=== PATIENT | female | born 2000 | race Hispanic/Latino ===

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

== ENCOUNTER 2021-10-11 13:49 | Emergency (ER) | payer BC ==
[~2021-10-11] VITALS: Ht 154.9 cm; Wt 49.4 kg
[2021-10-11 14:18] LABS: APPEARANCE,URINE Clear (CLEAR); BILIRUBIN,URINE Negative (NEGATIVE); COLOR,URINE Yellow (YELLOW); GLUCOSE, URINE (UA) Negative (NEGATIVE); KETONES,URINE Negative (NEGATIVE); LEUKOCYTE ESTERASE ,URINE Negative (NEGATIVE); NITRATE,URINE Negative (NEGATIVE); OCCULT BLOOD,URINE Trace (NEGATIVE); PH,URINE 6.5 (5.0-8.0); PROTEIN,URINE Negative (NEGATIVE); UROBILINOGEN,URINE 0.2 mg/dL (0.2-1.0)
[2021-10-11 14:24] LABS: HCG,QUAL RESULT NEGATIVE (NEGATIVE)
[2021-10-11] MEDS ORDERED: ONDANSETRON 4MG INJ IVP ONE (14:30)
[2021-10-11 14:34] LABS: BACTERIA,URINE Rare /HPF (None Seen); RBC,URINE 0-1 /HPF (0-1); SQUAMOUS EPITHELIAL CELL,UR Rare /HPF (0-2); WBC,URINE 0-1 /HPF (0-1)
[2021-10-11 14:41] LABS: BASOPHILS % (AUTO) 0.4 % (0.0-5.0); HEMATOCRIT 41.3 % (36-48); LYMPHOCYTES % (AUTO) 21.8 % (21.0-51.0); MEAN CORPUSCULAR HEMOGLOBIN 30.7 pg (27.0-33.0); MEAN CORPUSCULAR HGB CONC 33.9 g/dL (32.0-36.0); MEAN CORPUSCULAR VOLUME 90.6 fL (80-100); MONOCYTES % (AUTO) 10.6 % (3.0-13.0); NEUTROPHILS % (AUTO) 66.8 % (40.0-77.0); PLATELET COUNT (AUTO) 215 K/uL (130-400); RED BLOOD CELL COUNT(AUTO) 4.56 MIL/uL (4.00-5.50); RED CELL DISTRIBUTION WIDTH 11.8 % (11.0-15.5); WHITE BLOOD COUNT (AUTO) 4.5 K/uL (4.8-10.8)
[2021-10-11 14:53] LABS: ALBUMIN 3.4 g/dL (3.5-5.0); BILIRUBIN,TOTAL 0.4 mg/dL (0.2-1.0); CREATININE 0.7 mg/dL (0.5-1.5); POTASSIUM 3.6 mmol/L (3.5-5.1); TOTAL PROTEIN, SERUM 6.5 g/dL (6.0-8.3)
[2021-10-11] MEDS ORDERED: DICY20TA2 PO (16:23)
[2021-10-11] MEDS ORDERED: ONDA4TAB10 PO (16:47)
[2021-10-11 16:49] VITALS: BP 104/68
== END 2021-10-11 16:50 | disposition home or self-care (01) ==
LOC: EDH 13:49
DX: K52.9 Noninfective gastroenteritis and colitis, unspecified (principal)
CPT/HCPCS: 36415; 74176; 80053; 81001; 81025; 83690; 85025; 96374; 99284; J2405

== ENCOUNTER 2024-12-20 13:37 | Emergency (ER) | payer BC ==
[~2024-12-20] VITALS: Ht 154.9 cm; Wt 56.0 kg
[~2024-12-20 13:37] MED LIST: DICY20TA2 PO; ONDA-243 PO
[2024-12-20 13:43] VITALS: BP 117/79; PULSE 80; RESP 16; TEMP 98.7; O2SAT 98
[2024-12-20 13:59] LABS: IMMATURE GRANULOCYTE ABSOLUTE 0.02 K/uL (0-1); NUCLEATED RED BLOOD CELLS 0.0 % (0.0-0.19); PLATELET COUNT (AUTO) 295 K/uL (130-400); RED BLOOD CELL COUNT(AUTO) 4.67 MIL/uL (4.00-5.50); RED CELL DISTRIBUTION WIDTH 11.9 % (11.0-15.5); WHITE BLOOD COUNT (AUTO) 8.2 K/uL (4.8-10.8)
[2024-12-20 14:06] LABS: CREATININE 0.5 mg/dL (0.5-1.0); GLOMERULAR FILTR. RATE CALC 135.0 mL/min (>90); GLUCOSE,RANDOM 98.0 mg/dL (70-105); SODIUM SERUM 138.0 mmol/L (136-145); UREA NITROGEN, BLOOD 9.0 mg/dL (7-18)
[2024-12-20 14:18] LABS: APPEARANCE,URINE CLEAR (CLEAR); GLUCOSE, URINE (UA) NEGATIVE (NEGATIVE); LEUKOCYTE ESTERASE ,URINE NEGATIVE Leu/uL (NEGATIVE); NITRATE,URINE NEGATIVE (NEGATIVE); OCCULT BLOOD,URINE NEGATIVE (NEGATIVE)
[2024-12-20 14:25] LABS: ADD UA MICROSCOPIC NO
--- NOTE | 2024-12-20 16:00 | HMCIMG ---
EXAM: US Abdomen Limited, Appendix CLINICAL HISTORY: r/o appendicitis TECHNIQUE: Real-time ultrasound of the right lower quadrant with image documentation. COMPARISON: Study date - 10/11/21 FINDINGS: APPENDIX: Appendix not visualized OTHER: Small free fluid in the right lower quadrant region. IMPRESSION: 1. Appendix not visualized. 2. Small free fluid in the right lower quadrant. If there is persistent clinical concern for acute appendicitis, recommend contrast-enhanced CT imaging for further evaluation. /[place]
--- NOTE | 2024-12-20 16:07 | HMCIMG ---
EXAM: US Pelvis, Complete. CLINICAL HISTORY: positive preganncy test TECHNIQUE: Transabdominal pelvic ultrasound (complete) with image documentation. COMPARISON: None provided. FINDINGS: ENDOMETRIUM: Endometrial thickness measures 15 mm. No intrauterine or products of conception visualized. UTERUS/CERVIX: The uterus appears within normal limits and measures 7.8 x 3.6 x 3.9 cm. No uterine fibroid or other mass evident. RIGHT OVARY: Right ovary measures approximately 2.2 x 1.8 x 2.3 cm. 4.5 x 3.5 x 4.3 cm-sized cyst in the right ovary. Normal Doppler flow on transabdominal images. LEFT OVARY: Left ovary measures approximately 2.4 x 2.1 x 2.6 cm. Approximately 1.2 x 1.3 x 1.3 cm-sized follicle in the left ovary. Normal Doppler flow on transabdominal images. FREE FLUID: Small free fluid in the cul-de-sac, and right upper quadrant of the abdomen.IMPRESSION: 1. No intrauterine identified at this time. Recommend correlation with quantitative beta-hCG, and follow-up ultrasound imaging. 2. 4.5 x 3.5 x 4.3 cm right ovarian cyst. 3. Small free fluid in cul-de-sac and right upper quadrant. /[place]
--- NOTE | 2024-12-20 16:55 | NUR ---
TRANSFER REQUEST FOR OB SERVICE BY RASHID PATRICIO RN
--- NOTE | 2024-12-20 17:07 | NUR ---
TRANSFER CALL PLACED [facility] BY ER PRIMARY NURSE SPOKE WITH ERVIN INTAKE NURSE. WILL CALL BACK, SHENG ALEGRIA
[2024-12-20] MEDS: 0.9%NACL 1000ML 1,000 ML IV SCH (17:11)
--- NOTE | 2024-12-20 17:34 | NUR ---
INTAKE NURSE CALL BACK WITH ACCEPTANCE TO [facility] UNDER DR HUGGINS . PRIMARY NURSE TO CALL REPORT TO [phone] AND CALL EMS WHEN READY. SHENG ALEGRIA
--- NOTE | 2024-12-20 17:36 | ERN ---
General Chief Complaint: Abdominal Pain Stated Complaint: ABDOMINAL PAIN Time Seen by MD: 13:39 Time Seen by Midlevel: 13:39 Source: patient History of Present Illness Initial Comments The patient is a 24-year-old female with no significant past medical history presenting to the emergency department for evaluation of right lower quadrant abdominal pain that started earlier this week and progressively worsened. She specifically denies any fever, chills, dysuria, hematuria, or any other symptoms at this time. She states there is a potential possibility of at this time but has not taken a test. Allergies: Coded Allergies: No Known Drug Allergies (Unverified Allergy, Unknown, 10/11/21) Home Meds Active Scripts Ondansetron (Ondansetron Odt) 4 Mg Tab.rapdis, 4 MG PO QIDP, #28 TAB Prov:EDUIN FIGUEROA 10/11/21 Dicyclomine HCl (Bentyl) 20 Mg Tab, 20 MG PO QIDP, #28 TAB Prov:EDUIN FIGUEROA 10/11/21 Past Medical History Past Medical History: No Pertinent History Medical History Other: denies pmhx Past Surgical History: Other Surgical History Other: d/c Family History Family History: Negative Social History Social History: Negative Female( History) LMP: Nov 26, 2024 ROS Dictation CONSTITUTIONAL: Negative except for HPI HEAD/FACE: Negative except for HPI EENT: Negative except for HPI RESPIRATORY: Negative except for HPI GASTROINTESTINAL/ABDOMINAL: Negative except for HPI GENITOURINARY: Negative except for HPI MUSCULOSKELETAL: Negative except for HPI INTEGUMENTARY: Negative except for HPI NEUROLOGICAL/PSYCH: Negative except for HPI HEMATOLOGIC/LYMPHATIC: Negative except for HPI All Systems Negative, Except as noted above. 13 point review of systems assessed and all negative except for above. Physical Exam Physical Exam Dictation Vital Signs reviewed General Appearance: Alert, oriented x 3, no acute distress, well developed, nourished. Head and Face: non-traumatic. Eyes: PERRL, pink conjunctivas, eyelid no trauma, anterior chamber with arcus senilis. Ears: Pinnas intact and no signs of trauma or erythema ear canals clear and no discharge TM no erythema Nose: No discharge, no bleeding. Oropharynx: Mouth normal, tongue pink, pharynx clear,no erythema, tonsils no exudates, no abscesses noted, mucous membrane moist Neck: Supple, non-tender, no thyromegaly, no masses, no JVD, no bruits Breast:Deferred Chest:No tenderness, no crepitus, no paradoxical movement, no retractions Lungs:Clear, well-ventilated, symmetric, no rales, no wheezing, no rhonchi, no stridor, good breath sounds bilaterally Heart: Regular rate, regular rhythm, no murmur, no gallops Vascular: no peripheral edema, Abdomen: Soft, positive bowel sounds, nondistended, no guarding, nontender, no rebound, no masses no hepatomegaly, no splenomegaly, no Mendes's sign, no hernias. Rectal: Deferred Genital: Deferred Neurological: Normal speech, motor function intact, sensory function intact Musculoskeletal: Neck nontender, full range of motion, back nontender, full range of motion, Extremities: nontender, full range of motion Skin: Color pink, dry, no turgor, no rash, no lacerations, no abrasions, no contusions. Lymphatic: Deferred Results Laboratory and Microbiology Lab and Micro Result Laboratory Tests Test 12/20/24 13:43 12/20/24 13:55 Urine Color COLORLESS (YELLOW) Urine Appearance CLEAR (CLEAR) Urine pH 6.5 (5.0-8.0) Urine Specific Irene 1.006 (1.001-1.031) Urine Protein NEGATIVE mg/dL (NEGATIVE) Urine Glucose (UA) NEGATIVE mg/dL (NEGATIVE) Urine Ketones NEGATIVE mg/dL (NEGATIVE) Urine Occult Blood NEGATIVE (NEGATIVE) Urine Nitrate NEGATIVE (NEGATIVE) Urine Bilirubin NEGATIVE mg/dL (NEGATIVE) Urine Urobilinogen 0.2 mg/dL (0.2-1.0) Urine Leukocyte Esterase NEGATIVE Cory/uL White Blood Count 8.2 K/uL (4.8-10.8) Red Blood Count 4.67 MIL/uL (4.00-5.50) Hemoglobin 14.1 g/dL (12.0-16.0) Hematocrit 41.8 % (36-48) Mean Corpuscular Volume 89.5 fL (79-99) Mean Corpuscular Hemoglobin 30.2 pg (27.0-33.0) Mean Corpuscular Hemoglobin Concent 33.7 g/dL (32.0-36.0) Red Cell Distribution Width 11.9 % (11.0-15.5) Platelet Count 295 K/uL (130-400) Mean Platelet Volume 9.8 fL (7.5-10.5) Immature Granulocyte % (Auto) 0.2 % (0-1) Neutrophils (%) (Auto) 65.2 % (40.0-77.0) Lymphocytes (%) (Auto) 25.6 % (21.0-51.0) Monocytes (%) (Auto) 8.3 % (3.0-13.0) Eosinophils (%) (Auto) 0.5 % (0.0-8.0) Basophils (%) (Auto) 0.2 % (0.0-5.0) Neutrophils # (Auto) 5.3 K/uL (1.8-7.7) Lymphocytes # (Auto) 2.1 K/uL (1.0-4.8) Monocytes # (Auto) 0.7 K/uL (0.1-1.0) Eosinophils # (Auto) 0.04 K/uL (0.00-0.70) Basophils # (Auto) 0.02 K/uL (0.00-0.20) Absolute Immature Granulocyte (auto 0.02 K/uL (0-1) Nucleated Red Blood Cells 0.0 % (0.0-0.19) Sodium Level 138 mmol/L (136-145) Potassium Level 3.4 mmol/L (3.5-5.1) L Chloride Level 103 mmol/L (101-111) Carbon Dioxide Level 26 mmol/L (21-32) Blood Urea Nitrogen 9 mg/dL (7-18) Creatinine 0.5 mg/dL (0.5-1.0) Glomerular Filtration Rate Calc 135 mL/min (>90) Random Glucose 98 mg/dL (70-105) Total Calcium 8.8 mg/dL (8.5-10.1) Human Chorionic Gonadotropin, Quant 3131 mIU/mL (0-5) H Serum Test, Qualitative POSITIVE (NEGATIVE) H Labs Reviewed?: Yes MDM MDM: The patient is a 24-year-old female with no significant past medical history presenting to the emergency department for evaluation of right lower quadrant abdominal pain that started earlier this week and progressively worsened. She specifically denies any fever, chills, dysuria, hematuria, or any other symptoms at this time. She states there is a potential possibility of at this time but has not taken a test. On physical examination the patient appears to be mildly uncomfortable. Her vital signs are stable. She is afebrile and nontoxic appearing. She has right lower quadrant abdominal tenderness upon palpation. Upon initial presentation had a high clinical suspicion for acute appendicitis versus ectopic . Her test came back positive so an hCG was obtained which was 3131. A pelvic ultrasound reveals free fluid in the cul-de-sac, right lower quadrant, and right upper quadrant. The appendix was not well visualized on ultrasound however there was no leukocytosis. Labs and urinalysis are unremarkable. History and physical are concerning for ectopic . The patient is followed by OBGYN Dr. Ruiz. He was contacted and ultrasound/lab results were discussed and he recommends transferring to [facility] for possible laparoscopic surgery for a ruptured ectopic . supervisor [employer] was contacted and transfer was initiated. Patient was given1 L of IV fluids and was started on1 g of ceftriaxone. Differential diagnosis: Acute appendicitis, ruptured ectopic , constipation, urinary tract infection Rationale: Tests considered and ordered secondary to shared decision making include: Previous outside records reviewed: Old ER visits. Risk of complication and/or morbidity or mortality of patient management: None Medications-Per medication reconciliation Need for hospitalization: Patient does meet criteria for hospitalization. Need for emergency major/minor surgery: No There are no social concerns with this patient. Prescription drug management Prescriptions will include symptomatic care Patient's prior external medical records from other ER visits were reviewed by me as indicated. Prior testing and results from previous visits were reviewed. Prior tests were taken into account with medical decision making and resource utilization, independent historian/historians were used to obtain complete medical history. I independently interpreted the test that were performed, results were reviewed by me and considered findings on radiology if ordered. Medical management and examination interpretation discussions were had by me with other qualified healthcare professionals as indicated for the patient's care. ED Course Orders Procedure Category Date Status Time Cbc With Differential LAB 12/20/24 Complete 13:43 Basic Metabolic Panel LAB 12/20/24 Complete 13:43 Testing, LAB 12/20/24 Complete Serum Hcg 13:43 Urinalysis Profile LAB 12/20/24 Complete 13:43 Us Ob <14 Weeks US 12/20/24 Resulted 14:26 Us Abd Limited/Abd US 12/20/24 Resulted Wall 14:27 Hcg,Quantitative LAB 12/20/24 Complete 14:32 0.9%Nacl 1000ml (Ns PHA 12/20/24 In Process 1000ml) 17:00 Ceftriaxone 1g Vial PHA 12/20/24 In Process (Rocephine 1g Inj) 17:00 Current Medications Medications (Trade) Dose Ordered Sig/Angelo Route PRN Reason Start Time Stop Time Status Last Admin Dose Admin Ceftriaxone Sodium (ROCEphine 1G INJ) 1 gm ONCE IVPB 12/20/24 17:00 12/20/24 21:00 12/20/24 17:11 Sodium Chloride 1,000 ml @ 0 mls/hr ONCE IV 12/20/24 17:00 12/21/24 16:59 12/20/24 17:11 Vital Signs Date Time Temp Pulse Resp B/P (MAP) Pulse Ox O2 Delivery O2 Flow Rate FiO2 12/20/24 13:43 98.8 80 16 117/79 98 Room Air* 0 21 12/20/24 13:39 98.8 80 16 117/79 98 Room Air 0 [place] [address] IMAGING REPORT Signed PATIENT: SHAR BOWER MR#: [id number] : 2000 SEX: F AGE: 24 LOCATION: [facility] ORDER 27 STATUS: REG ER REPORT#: [id number] SERVICE 26 REASON: r/o appendicitis ORDERING PHYSICIAN: ELENI HULL PROCEDURE: ABD WALL - US ABD LIMITED/ABD WALL EXAM: US Abdomen Limited, Appendix CLINICAL HISTORY: r/o appendicitis TECHNIQUE: Real-time ultrasound of the right lower quadrant with image documentation. COMPARISON: Study date - 10/11/21 FINDINGS: APPENDIX: Appendix not visualized OTHER: Small free fluid in the right lower quadrant region. IMPRESSION: 1. Appendix not visualized. 2. Small free fluid in the right lower quadrant. If there is persistent clinical concern for acute appendicitis, recommend contrast-enhanced CT imaging for further evaluation. /[place] DICTATED BY: TERRELL RICHARDSON Jr., MD DATE: 12/20/241658 ELECTRONICALLY SIGNED BY: TERRELL RICHARDSON Jr., MD DATE: 12/20/241658 DX & DISP Disposition: Transfer ([facility] ) Departure Impression: Primary Impression: Ruptured ectopic Condition: Stable Referrals: ANA DE JESUS DOCK COORDINATOR (PCP) I have reviewed the case, and I agree with, Diagnosis and Plan I performed the substantive portion of the visit. I have reviewed and personally made and approve the management plan that is documented in the note by myself or the RUBA. I acknowledge for responsibility for the patient's management plan. ELENI HULL Dec 20, 2024 17:36
--- NOTE | 2024-12-20 17:40 | NUR ---
[facility] EMS CALLED AT THIS TIME AND THE WILL DISPATCH AMBUL[facility]
--- NOTE | 2024-12-20 18:08 | NUR ---
REPORT GIVEN TO JENNIFER MORGAN NURSE AT [facility] [place] AT 1800. PT STABLE NO DISTRESS VITALS WNL NO C/O PAIN BOYFRIEND HAS PT JEWLERY AND PERSONAL BELONGINGS. PT TRANSFERRED BY EMS.
== END 2024-12-20 18:23 | disposition short-term general hospital (02) ==
LOC: EDH 13:37
DX: O00.90 Unspecified ectopic pregnancy without intrauterine pregnancy (principal); N83.201 Unspecified ovarian cyst, right side; Z79.899 Other long term (current) drug therapy; Z3A.00 Weeks of gestation of pregnancy not specified
CPT/HCPCS: 99285; 96374; 76705; 76801; 80048; 84703; 84702; 85025; 81003; 36415; J7030; J0696